=== PATIENT | male | born 1985 | race African-American/Black ===

== ENCOUNTER 2018-05-02 09:46 | Emergency (ER) | payer SELFPAY ==
[~2018-05-02] VITALS: Ht 188 cm; Wt 93.2 kg
[~2018-05-02 09:46] MED LIST: RISP3TAB44 PO
[2018-05-02] MEDS ORDERED: HYDR-4061 PO (10:13)
[2018-05-02] MEDS ORDERED: SENN8.6T20 PO (10:13)
[2018-05-02] MEDS ORDERED: PERID15L MM (10:13)
[2018-05-02] MEDS ORDERED: CLIN300C3 PO (10:13)
[2018-05-02 13:12] VITALS: BP 138/74
[2018-05-02] MEDS ORDERED: KETOROLAC TROMETHAMINE 30 MG/ML VIAL IM ONE (13:15)
[2018-05-02] MEDS ORDERED: PENICILLIN V POTASSIUM 500 MG TABLET PO ONE (13:15)
[2018-05-02] MEDS ORDERED: AMOX TR/POT CLAV 875 MG/125 MG TABLET PO ONE (13:30)
== END 2018-05-02 13:59 | disposition home or self-care (01) ==
LOC: EMS 09:48
DX: K04.7 Periapical abscess without sinus (principal); F17.210 Nicotine dependence, cigarettes, uncomplicated; F31.9 Bipolar disorder, unspecified; F20.9 Schizophrenia, unspecified; Z79.899 Other long term (current) drug therapy
CPT/HCPCS: 96372; 99283; 99406; J1885